=== PATIENT | male | born 1980 | race Two or more races ===

== ENCOUNTER 2019-01-27 10:21 | Emergency (ER) | payer MEDICAID, OTHER ==
[2019-01-27 10:45] VITALS: BP 135/90
--- NOTE | 2019-01-27 11:10 | ER Document Report ---
HPI - HPI Time Seen by Provider: 01/27/19 11:00 Pain Level: 5 Notes: Patient is a 38-year-old male with no significant past medical history aside from chickenpox as a child who presents complaining of rash to the right upper chest/shoulder area that is been present for the past 2 to 3 days. Patient states that the rash is painful, sore, and has occasional itching. He was told by another provider that it was shingles, but was not placed on any medications. Patient is here for second opinion as well. Denies drug allergies. No other concerns or complaints. He has not been exposed any new chemicals, detergents, soaps, plants, foods. Denies any headache, fever, neck pain, changes in vision/speech/mentation/hearing, URI, sore throat, chest pain, palpitations, syncope, cough, shortness of breath, wheeze, dyspnea, abdominal pain, nausea/vomiting/diarrhea, urinary retention, dysuria, hematuria. - ROS Systems Reviewed and Negative: Yes All other systems reviewed and negative Past Medical History - Social History Smoking Status: Unknown if Ever Smoked Family History: Reviewed & Not Pertinent Vertical Provider Document - CONSTITUTIONAL Agree With Documented VS: Yes Notes: PHYSICAL EXAMINATION: GENERAL: Well-appearing, well-nourished and in no acute distress. HEAD: Atraumatic, normocephalic. EYES: Pupils equal round and reactive to light, extraocular movements intact, sclera anicteric, conjunctiva are normal. ENT: EAC clear b/l. TM's intact b/l without erythema, fluid, or perforation. Nares patent and without discharge. oropharynx clear without exudates. No tonsilar hypertrophy or erythema. Moist mucous membranes. No sinus tenderness. NECK: Normal range of motion, supple without lymphadenopathy LUNGS: Breath sounds clear to auscultation bilaterally and equal. No wheezes rales or rhonchi. HEART: Regular rate and rhythm without murmurs, rubs, gallops. Musculoskeletal: FROM to passive/active. Strength 5+/5. Extremities: No cyanosis, clubbing, or edema b/l. Peripheral pulses 2+. Capillary refill less than 3 seconds. NEUROLOGICAL: Cranial nerves grossly intact. Normal speech, normal gait. Normal sensory, motor exams PSYCH: Normal mood, normal affect. SKIN: + grouped vesicular lesions noted with erythema and tenderness along dermatome C4 consistent with shingles. - INFECTION CONTROL TRAVEL OUTSIDE OF THE [place] IN LAST 30 DAYS: No Course - Re-evaluation Re-evalutation: 01/27/19 11:07 Patient is an afebrile, well-hydrated, 38-year-old male who presents with shingles to the C4 dermatome approximately. Vitals are acceptable without significant tachycardia, tachypnea, or hypoxia. PE is otherwise unremarkable. Patient is nontoxic-appearing is tolerating p.o. without difficulty. No further work-up warranted. No eye or ear involvement. Low suspicion for any necrotizing fasciitis, SJS, SSS, drug reaction, sepsis, meningitis, syphilis, Lyme disease, [place] spotted fever, or other systemic emergent condition at this time. Patient aware that condition can change from initial presentation and he needs to monitor symptoms closely and seek medical attention with any acute changes. Recheck with your PCM in 3-5 days. Consider consult with dermatology. Return to the ED with any other worsening/concerning symptoms as reviewed. Patient is in agreement. - Vital Signs Vital signs: Temp Pulse Resp BP Pulse Ox 98.1 F 89 20 135/90 H 98 01/27/19 10:40 01/27/19 10:40 01/27/19 10:40 01/27/19 10:40 01/27/19 10:40 Discharge - Discharge Clinical Impression: Shingles Qualifiers: Herpes zoster complications: without complications Qualified Code(s): B02.9 - Zoster without complications Condition: Stable Disposition: HOME, SELF-CARE Instructions: Shingles ([facility]) Additional Instructions: Keep the skin clean Wash with soap and water Tylenol/ibuprofen if needed Triple antibiotic ointment daily for any break in the skin Take medication as directed Monitor for any worsening symptoms Recheck with your PCM in 3-5 days Return to the ED with any worsening symptoms and/or development of fever, headache, chest pain, palpitations, syncope, shortness of breath, trouble breathing, abdominal pain, n/v/d, abscess, purulent discharge, red streaks, worsening swelling, or other worsening symptoms that are concerning to you. Prescriptions: Tramadol HCl [Ultram 50 mg Tablet] 50 mg PO Q4HP PRN #12 tab PRN Reason: Lidocaine 15 gm TP TID PRN #15 cream..g. PRN Reason: Valacyclovir HCl [Valtrex] 1,000 mg PO TID #21 tablet Forms: Elevated Blood Pressure Referrals: SERA ALFONSO DO [ACTIVE STAFF] - Follow up as needed
== END 2019-01-27 11:10 | disposition home or self-care (01) ==
LOC: ER 10:21
DX: B02.9 Zoster without complications (principal)
CPT/HCPCS: 99282